=== PATIENT | female | born 1955 | race Caucasian/White ===

== ENCOUNTER 2019-09-25 21:28 | Emergency (ER) | payer BC ==
[2019-09-25] MEDS ORDERED: Lidocaine 1% 30 ML SDV INJECT ONE (23:26)
[2019-09-25] MEDS ORDERED: Bacitracin Oint 1 GM U/D Packet TOP ONE (23:49)
--- NOTE | 2019-09-25 23:57 | EDM.PDOC ---
ED HPI GENERAL MEDICAL PROBLEM - General Chief Complaint: Upper Extremity Injury/Pain Stated Complaint: FISH HOOK IN THE LEFT HAND Time Seen by Provider: 09/25/19 23:46 Source of Information: Reports: Patient History Limitations: Reports: No Limitations - History of Present Illness INITIAL COMMENTS - FREE TEXT/NARRATIVE: Patient comes emergency department today with complaints of a fishhook in her left palm of her hand. Patient was out fishing today when she accidentally got a fishhook stuck in the palm of her left hand in the webbing between the thumb and second finger. Her last tetanus shot was just a couple of years ago. She denies any paresthesias to her hand. Denies any change in the functionality of her hand. 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 ED EXAM, GENERAL - Physical Exam Exam: See Below Exam Limited By: No Limitations General Appearance: Alert, WD/WN, No Apparent Distress Respiratory/Chest: No Respiratory Distress Cardiovascular: Normal Peripheral Pulses Peripheral Pulses: 2+: Radial (L), Radial (R) Extremities: No: Normal Inspection (In the webbing between the thumb and second finger of the left hand there is a barbed fishhook that is in the subcutaneous tissue. There is no erythema induration swelling or discharge. There is appropriate CMS throughout the hand. She is able to flex and extend at the appropriate joints of all the fingers of the left hand.) Course - Vital Signs Last Recorded V/S: Last Vital Signs Temp 98.6 F 09/25/19 21:42 Pulse 99 09/25/19 21:42 Resp 20 09/25/19 21:42 BP 152/81 H 09/25/19 21:42 Pulse Ox 97 09/25/19 21:42 - Orders/Labs/Meds Meds: Medications Discontinued Medications Generic Name Dose Route Start Last Admin Trade Name Ayesha PRN Reason Stop Dose Admin Bacitracin 1 dose 09/25/19 23:49 Bacitracin Oint 1 Gm TOP 09/25/19 23:50 ONETIME ONE Lidocaine HCl 30 ml 09/25/19 23:26 09/25/19 23:34 Xylocaine-Mpf 1% INJECT 09/25/19 23:27 30 ml ONETIME ONE Administration - Re-Assessments/Exams Free Text/Narrative Re-Assessment/Exam: 09/25/19 23:57 1% lidocaine without epinephrine was injected at the site. Then through the use of umbilical tape we were able to easily remove the fish hook with manual traction. Small amount of bleeding. Hands were cleansed with chlorhexidine and bacitracin and bandage applied. watch for signs of infection. She is comfortable with this plan and her questions answered. Departure - Departure Time of Disposition: 23:58 Disposition: Home, Self-Care 01 Clinical Impression: Fish hook injury of left hand Qualifiers: Encounter type: initial encounter Qualified Code(s): S69.92XA - Unspecified injury of left wrist, hand and finger(s), initial encounter - Discharge Information Instructions: Pain Medicine Instructions, [id number] Forms: ED Department Discharge Additional Instructions: Wash hand twice daily with soap and water. Bacitracin and bandage until healed. Watch for signs of infection. Recheck if any concerns. Sepsis Event Note (ED) - Evaluation Sepsis Screening Result: No Definite Risk - Focused Exam Vital Signs: Vital Signs Temp Pulse Resp BP Pulse Ox 09/25/19 21:42 98.6 F 99 20 152/81 H 97
== END 2019-09-26 00:09 | disposition home or self-care (01) ==
LOC: DL.ED 21:28
DX: S60.552A Superficial foreign body of left hand, initial encounter (principal); I10 Essential (primary) hypertension; E11.21 Type 2 diabetes mellitus with diabetic nephropathy; M41.9 Scoliosis, unspecified
CPT/HCPCS: 99282; J2001